=== PATIENT | male | born 1965 | race Caucasian/White ===

== ENCOUNTER 2018-09-30 10:53 | Inpatient (IN) | payer BC ==
[2018-09-30 12:09] VITALS: BMI 20.9
--- NOTE | 2018-09-30 13:00 | HP ---
CIWA Score Nausea/Vomitin Muscle Tremors: 2 Anxiety: 2 Agitation: 2 Paroxysmal Sweats: 1-Minimal Palms Moist Orientation: 0-Oriented Tacttile Disturbances: 1-Very Mild Itch/Numbness Auditory Disturbances: 1-Very Mild Visual Disturbances: 0-None Headache: 2-Mild CIWA-Ar Total Score: 13 - Admission Criteria OASAS Guidelines: Admission for Medically Managed Detox: Requires at least one of the followin. CIWA greater than 12 2. Seizures within the past 24 hours 3. Delirium tremens within the past 24 hours 4. Hallucinations within the past 24 hours 5. Acute intervention needed for co occurring medical disorder 6. Acute intervention needed for co occurring psychiatric disorder 7. Severe withdrawal that cannot be handled at a lower level of care (continued vomiting, continued diarrhea, abnormal vital signs) requiring intravenous medication and/or fluids 8. Admission ROS [facility] - HPI Chief Complaint: i need help to stop drinking alcohol Allergies/Adverse Reactions: Allergies Allergy/AdvReac Type Severity Reaction Status Date / Time No Known Allergies Allergy Verified 09/30/18 14:22 History of Present Illness: this 53 years old male with alcohol dependence,seeking detox,withdrawal symptom, last detox 01/14/16 to 01/18/16 [facility],rehab 01/18/16 to 02/04/16 had episode of syncope on 09/24/18 to 09/25/18 admitted at [facility] to r/o cva,syncope,r/o seizure left the hospital on 09/28/18 daily drinking hypercholesterolemia neuropathy longest sobriety 25 years nicotine 10 cigarette/day,do not want any nicotine replacement depression,insomnia Exam Limitations: No Limitations - Ebola screening Have you traveled outside of the country in the last 21 days: No Have you had contact with anyone from an Ebola affected area: No Have you been sick,other than usual withdrawal symptoms: No - Review of Systems Constitutional: Loss of Appetite, Malaise, Night Sweats, Changes in sleep, Unintentional Wgt. Loss EENT: reports: Nose Congestion Respiratory: reports: No Symptoms reported Cardiac: reports: Palpitations GI: reports: Nausea, Poor Appetite, Indigestion : reports: No Symptoms Reported Musculoskeletal: reports: Back Pain, Muscle Pain Integumentary: reports: Dryness Neuro: reports: Tremors Endocrine: reports: No Symptoms Reported Hematology: reports: No Symptoms Reported Psychiatric: reports: No Sypmtoms Reported, Judgement Intact, Mood/Affect Appropiate, Orientated x3, Depressed (insomnia) Other Systems: Reviewed and Negative Patient History - Patient Medical History Hx Anemia: No Hx Asthma: Yes (asthmatic bronhitis on albuterol inhaler) Hx Chronic Obstructive Pulmonary Disease (COPD): No Hx Cancer: No Hx Cardiac Disorders: No Hx Congestive Heart Failure: No Hx Hypertension: No Hx Hypercholesterolemia: No Hx Pacemaker: No HX Cerebrovascular Accident: No Hx Seizures: No Hx Diabetes: No Hx Gastrointestinal Disorders: Yes (GERD) Hx Liver Disease: No Hx Genitourinary Disorders: No Hx Sexually Transmitted Disorders: No Hx Renal Disease (ESRD): No Hx Thyroid Disease: No Hx Human Immunodeficiency Virus (HIV): No (last 2018 negative) Hx Hepatitis C: No Hx Depression: Yes (insomnia) Hx Suicide Attempt: No Hx Bipolar Disorder: No Hx Schizophrenia: No Other Medical History: no suicidal,no homicidal,neuropathy,syncope alcohol related - Patient Surgical History Past Surgical History: Yes Hx Neurologic Surgery: No Hx Cataract Extraction: No Hx Cardiac Surgery: No Hx Lung Surgery: No Hx Breast Surgery: No Hx Breast Biopsy: No Hx Abdominal Surgery: No Hx Appendectomy: No Hx Cholecystectomy: No Hx Genitourinary Surgery: No Hx Orthopedic Surgery: Yes (left hand 2013) Other Surgical History: ulnar nerve transposition left 2013 at [facility] left Anesthesia Reaction: No - PPD History Previous Implant?: Yes Documented Results: Negative w/o proof Implanted On Prior R Admission?: Yes Date: 01/16/16 Results: 0 mm PPD to be Administered?: Yes - Smoking Cessation Smoking history: Current every day smoker Have you smoked in the past 12 months: Yes Aproximately how many cigarettes per day: 10 Hx Chewing Tobacco Use: No Initiated information on smoking cessation: Yes 'Breaking Loose' booklet given: 09/30/18 - Substance & Tx. History Hx Alcohol Use: Yes Substance Use Type: Alcohol Hx Substance Use Treatment: Yes ([facility] 01/14/16 to 01/18/16,01/18/16 to 02/04/16 rehab) - Substances Abused Alcohol Route: Oral Frequency: Daily Amount used: 1 pint of vodka/6 packs of 24 ozs of beer Age of first use: 14 Date of Last Use: 09/30/18 Family Disease History - Family Disease History Family Disease History: Heart Disease: Father, [place]: Father, Mother Admission Physical Exam [facility] - Vital Signs Vital Signs: Vital Signs - 24 hr 09/30/18 12:06 Temperature 97.5 F L Pulse Rate 105 H Respiratory 20 Rate Blood Pressure 92/63 - Physical General Appearance: Yes: Moderate Distress, Tremorous, Irritable, Sweating, Anxious HEENTM: Yes: Normal ENT Inspection, MARKO, Pharynx Normal Respiratory: Yes: Within Normal Limits, Lungs Clear, Normal Breath Sounds Neck: Yes: Within Normal Limits, Supple, Trachea in good position Breast: Yes: Within Normal Limits Cardiology: Yes: Tachycardia Abdominal: Yes: Within Normal Limits, Normal Bowel Sounds, Non Tender, Flat, Soft Genitourinary: Yes: Within Normal Limits Back: Yes: Muscle Spasm Musculoskeletal: Yes: full range of Motion, Back pain, Muscle Pain Extremities: Yes: Tremors Neurological: Yes: state game protector II-XII NML intact, Alert, Motor Strength 5/5, Other ( neuropathy) Integumentary: Yes: Dry Lymphatic: Yes: Within Normal Limits - Diagnostic (1) Alcohol dependence with withdrawal Current Visit: No Status: Acute Qualifiers: Complication of substance-induced condition: uncomplicated Qualified Code(s ): F10.230 - Alcohol dependence with withdrawal, uncomplicated (2) GERD (gastroesophageal reflux disease) Current Visit: No Status: Chronic Qualifiers: Esophagitis presence: without esophagitis Qualified Code(s): K21.9 - Gastro -esophageal reflux disease without esophagitis (3) Neuropathic pain of hand Current Visit: No Status: Chronic Qualifiers: Laterality: left Qualified Code(s): M79.2 - Neuralgia and neuritis, unspecified (4) Nicotine dependence Current Visit: No Status: Chronic Qualifiers: Nicotine product type: cigarettes Substance use status: uncomplicated Qualified Code(s): F17.210 - Nicotine dependence, cigarettes, uncomplicated (5) Weight loss, unintentional Current Visit: No Status: Suspected (6) Alcohol dependence with uncomplicated intoxication Current Visit: Yes Status: Acute (7) Hypercholesterolemia Current Visit: Yes Status: Acute (8) Syncope Current Visit: Yes Status: Acute (9) Ulnar nerve damage Current Visit: Yes Status: Acute Cleared for Admission [facility] - Detox or Rehab [facility] Level of Care: Medically Managed Detox Regimen/Protocol: Librium [facility] Breath Alcohol Content Breath Alcohol Content: 0.138 Urine Drug Screen - Results Drug Screen Negative: No Urine Drug Screen Results: BZO-Benzodiazepines Inpatient Rehab Admission - Rehab Decision to Admit Inpatient rehab admission?: No
[2018-09-30] MEDS ORDERED: chlordiazePOXIDE HCL 25 MG CAPSULE PO PRN (13:16)
[2018-09-30] MEDS ORDERED: ACETAMINOPHEN 325 MG TABLET (FP) PO PRN ×2 (13:16)
[2018-09-30] MEDS ORDERED: MAG HYDROX/AL HYDROX/SIMETH 30 ML UNIT-DOSE CUP PO PRN (13:16)
[2018-09-30] MEDS ORDERED: MELATONIN 5 MG TABLETS PO PRN (13:16)
[2018-09-30] MEDS ORDERED: BISMUTH SUBSALICYLATE 262 MG/15 ML BTL PO PRN (13:16)
[2018-09-30] MEDS ORDERED: MENTHOL/PHENOL 1 EACH UD MM PRN (13:16)
[2018-09-30] MEDS ORDERED: MAGNESIUM CITRATE 300 ML BOTTLE PO PRN (13:16)
[2018-09-30] MEDS ORDERED: MAGNESIUM HYDROX 2400MG/30ML ORAL SUSPENSION 30 ML CUP PO PRN (13:16)
[2018-09-30] MEDS: chlordiazePOXIDE HCL 25 MG CAPSULE PO SCH ×2 (17:23→22:28)
[2018-09-30] MEDS: hydrOXYzine PAMOATE 25 MG CAPSULE (FP) PO PRN ×2 (17:23→22:28)
[2018-09-30] MEDS: RANITIDINE HCL 150 MG TABLET (FP) PO SCH (22:28)
[2018-09-30] MEDS: GABAPENTIN 400 MG CAPSULE (FP) PO SCH (22:28)
[2018-09-30] MEDS: THIAMINE HCL 100 MG TABLET (FP) PO SCH (22:28)
[2018-09-30 22:35] LABS: URINE APPEARANCE CLEAR; URINE BILIRUBIN NEGATIVE (NEGATIVE); URINE COLOR YELLOW; URINE GLUCOSE (UA) NEGATIVE (NEGATIVE); URINE KETONE NEGATIVE (NEGATIVE); URINE LEUK ESTERASE NEGATIVE (NEGATIVE); URINE NITRITE NEGATIVE (NEGATIVE); URINE PROTEIN NEGATIVE (NEGATIVE); URINE UROBILINOGEN 0.2 mg/dL (0.2-1.0)
[2018-10-01] MEDS: chlordiazePOXIDE HCL 25 MG CAPSULE PO SCH ×4 (06:04→22:05)
[2018-10-01] MEDS: GABAPENTIN 300 MG CAPSULE (FP) PO SCH ×3 (06:35→22:06)
[2018-10-01] MEDS: GABAPENTIN 400 MG CAPSULE (FP) PO SCH (07:20)
[2018-10-01] MEDS: hydrOXYzine PAMOATE 25 MG CAPSULE (FP) PO PRN ×2 (08:43→22:06)
[2018-10-01] MEDS: RANITIDINE HCL 150 MG TABLET (FP) PO SCH ×2 (10:19→22:05)
[2018-10-01] MEDS: PRENATAL VITAMINS W/ FOLIC ACID TABLET (FP) PO SCH (10:19)
[2018-10-01] MEDS: FLUoxetine HCL 10 MG TABLET PO SCH (10:20)
[2018-10-01 10:50] LABS: HEMATOCRIT 45.3 % (35.4-49); HEMOGLOBIN 14.7 GM/dL (11.7-16.9); MCH 33.8 pg (25.7-33.7); MCHC 32.5 g/dl (32.0-35.9); MEAN CELL VOLUME 103.9 fl (80-96); MEAN PLT VOLUME 8.9 fl (7.5-11.1); PLATELET COUNT 270 K/MM3 (134-434); RBC 4.36 M/mm3 (4.00-5.60); RDW 13.7 % (11.9-15.9); WHITE BLOOD COUNT 6.6 K/mm3 (4.0-10.0)
[2018-10-01 11:15] LABS: ALBUMIN 3.9 g/dl (3.4-5.0); ALK PHOS 62 U/L (45-117); ANION GAP 8 MMOL/L (8-16); BILIRUBIN,TOTAL 0.2 mg/dL (0.2-1); BLOOD UREA NITROGEN 10 mg/dL (7-18); CALCIUM 8.6 mg/dL (8.5-10.1); CHLORIDE 109 mmol/L (98-107); CO2 27 mmol/L (21-32); CREATININE 0.8 mg/dL (0.55-1.3); GLUCOSE,RANDOM 91 mg/dL (74-106); POTASSIUM 3.9 mmol/L (3.5-5.1); SGOT/AST 17 U/L (15-37); SGPT/ALT 22 U/L (13-61); SODIUM 144 mmol/L (136-145); TOT PROT 7.1 g/dl (6.4-8.2)
--- NOTE | 2018-10-01 13:37 | PN ---
S CIWA - CIWA Score Nausea/Vomitin Muscle Tremors: 3 Anxiety: 3 Agitation: 2 Paroxysmal Sweats: 2 Orientation: 0-Oriented Tacttile Disturbances: 2-Mild Itch/Numbness/Burn Auditory Disturbances: 0-None Visual Disturbances: 0-None Headache: 1-Very Mild CIWA-Ar Total Score: 15 S Progress Note (SOAP) Subjective: Left leg pain/ neuropathic pain,anxiety, shakes and sweats Objective: 10/01/18 13:37 Vital Signs - 8 hr 10/01/18 10/01/18 08:28 09:42 Temperature 97.7 F 96.8 F L Pulse Rate 59 L 70 Respiratory 18 18 Rate Blood Pressure 98/62 111/56 L Laboratory Last Values WBC 6.6 K/mm3 (4.0-10.0) 10/01/18 05:35 RBC 4.36 M/mm3 (4.00-5.60) 10/01/18 05:35 Hgb 14.7 GM/dL (11.7-16.9) 10/01/18 05:35 Hct 45.3 % (35.4-49) 10/01/18 05:35 MCV 103.9 fl (80-96) H 10/01/18 05:35 MCH 33.8 pg (25.7-33.7) H 10/01/18 05:35 MCHC 32.5 g/dl (32.0-35.9) 10/01/18 05:35 RDW 13.7 % (11.9-15.9) 10/01/18 05:35 Plt Count 270 K/MM3 (134-434) 10/01/18 05:35 MPV 8.9 fl (7.5-11.1) 10/01/18 05:35 Sodium 144 mmol/L (136-145) 10/01/18 05:35 Potassium 3.9 mmol/L (3.5-5.1) 10/01/18 05:35 Chloride 109 mmol/L (98-107) H 10/01/18 05:35 Carbon Dioxide 27 mmol/L (21-32) 10/01/18 05:35 Anion Gap 8 MMOL/L (8-16) 10/01/18 05:35 BUN 10 mg/dL (7-18) 10/01/18 05:35 Creatinine 0.8 mg/dL (0.55-1.3) 10/01/18 05:35 Creat Clearance w eGFR 100.36 (>60) 10/01/18 05:35 Random Glucose 91 mg/dL (74-106) 10/01/18 05:35 Calcium 8.6 mg/dL (8.5-10.1) 10/01/18 05:35 Total Bilirubin 0.2 mg/dL (0.2-1) 10/01/18 05:35 AST 17 U/L (15-37) 10/01/18 05:35 ALT 22 U/L (13-61) 10/01/18 05:35 Alkaline Phosphatase 62 U/L (45-117) 10/01/18 05:35 Total Protein 7.1 g/dl (6.4-8.2) 10/01/18 05:35 Albumin 3.9 g/dl (3.4-5.0) 10/01/18 05:35 Urine Color Yellow 09/30/18 16:21 Urine Appearance Clear 09/30/18 16:21 Urine pH 5.0 (5.0-8.0) 09/30/18 16:21 Ur Specific [place] 1.005 (1.010-1.035) L 09/30/18 16:21 Urine Protein Negative (NEGATIVE) 09/30/18 16:21 Urine Glucose (UA) Negative (NEGATIVE) 09/30/18 16:21 Urine Ketones Negative (NEGATIVE) 09/30/18 16:21 Urine Blood Negative (NEGATIVE) 09/30/18 16:21 Urine Nitrite Negative (NEGATIVE) 09/30/18 16:21 Urine Bilirubin Negative (NEGATIVE) 09/30/18 16:21 Urine Urobilinogen 0.2 mg/dL (0.2-1.0) 09/30/18 16:21 Ur Leukocyte Esterase Negative (NEGATIVE) 09/30/18 16:21 RPR Titer Nonreactive (NONREACTIVE) 10/01/18 05:35 HIV 1&2 Antibody Screen Negative 10/01/18 05:35 HIV P24 Antigen Negative 10/01/18 05:35 Labs noted Assessment: 10/01/18 13:37 Withdrawal sx Plan: Continue detox
[2018-10-01] MEDS: IBUPROFEN 400 MG TABLET (FP) PO PRN (17:49)
[2018-10-01] MEDS: THIAMINE HCL 100 MG TABLET (FP) PO SCH (22:05)
[2018-10-01] MEDS: METHOCARBAMOL 500 MG TABLET PO PRN (22:06)
[2018-10-02] MEDS: chlordiazePOXIDE HCL 25 MG CAPSULE PO SCH ×2 (05:21→10:10)
[2018-10-02] MEDS: GABAPENTIN 300 MG CAPSULE (FP) PO SCH ×3 (05:22→22:23)
[2018-10-02] MEDS: PRENATAL VITAMINS W/ FOLIC ACID TABLET (FP) PO SCH (10:10)
[2018-10-02] MEDS: RANITIDINE HCL 150 MG TABLET (FP) PO SCH ×2 (10:10→22:23)
[2018-10-02] MEDS: FLUoxetine HCL 10 MG TABLET PO SCH (10:10)
[2018-10-02] MEDS ORDERED: HYDROCORTISONE 1% TOPICAL OINT 30 GM TUBE TP ONE (12:21)
--- NOTE | 2018-10-02 12:23 | PN ---
[facility] CIWA - CIWA Score Nausea/Vomitin-No Nausea/No Vomiting Muscle Tremors: 3 Anxiety: 3 Agitation: 3 Paroxysmal Sweats: 2 Orientation: 0-Oriented Tacttile Disturbances: 0-None Auditory Disturbances: 0-None Visual Disturbances: 0-None Headache: 0-None Present CIWA-Ar Total Score: 11 S Progress Note (SOAP) Subjective: shakes sweats rash on face only interrupted sleep Objective: 10/02/18 12:33 Vital Signs Temperature 97.9 F 10/02/18 09:58 Pulse Rate 85 10/02/18 09:58 Respiratory Rate 18 10/02/18 09:58 Blood Pressure 111/70 10/02/18 09:58 O2 Sat by Pulse Oximetry (%) Laboratory Tests 09/30/18 10/01/18 10/01/18 16:21 05:35 05:35 WBC 6.6 RBC 4.36 Hgb 14.7 Hct 45.3 MCV 103.9 H MCH 33.8 H MCHC 32.5 RDW 13.7 Plt Count 270 MPV 8.9 Sodium Potassium Chloride Carbon Dioxide Anion Gap BUN Creatinine Creat Clearance w eGFR Random Glucose Calcium Total Bilirubin AST ALT Alkaline Phosphatase Total Protein Albumin Urine Color Yellow Urine Appearance Clear Urine pH 5.0 Ur Specific [place] 1.005 L Urine Protein Negative Urine Glucose (UA) Negative Urine Ketones Negative Urine Blood Negative Urine Nitrite Negative Urine Bilirubin Negative Urine Urobilinogen 0.2 Ur Leukocyte Esterase Negative RPR Titer HIV 1&2 Antibody Screen Negative HIV P24 Antigen Negative 10/01/18 10/01/18 05:35 05:35 WBC RBC Hgb Hct MCV MCH MCHC RDW Plt Count MPV Sodium 144 Potassium 3.9 Chloride 109 H Carbon Dioxide 27 Anion Gap 8 BUN 10 Creatinine 0.8 Creat Clearance w eGFR 100.36 Random Glucose 91 Calcium 8.6 Total Bilirubin 0.2 AST 17 ALT 22 Alkaline Phosphatase 62 Total Protein 7.1 Albumin 3.9 Urine Color Urine Appearance Urine pH Ur Specific [place] Urine Protein Urine Glucose (UA) Urine Ketones Urine Blood Urine Nitrite Urine Bilirubin Urine Urobilinogen Ur Leukocyte Esterase RPR Titer Nonreactive HIV 1&2 Antibody Screen HIV P24 Antigen aaox3 ambulating no acute distress Assessment: 10/02/18 12:42 withdrawal sx Plan: continue detox hydrocortizone 1% cream
[2018-10-02] MEDS: HYDROCORTISONE 1% TOPICAL OINT 30 GM TUBE TP SCH ×3 (14:31→22:24)
[2018-10-02] MEDS ORDERED: chlordiazePOXIDE HCL 10 MG CAPSULE PO PRN (17:00)
[2018-10-02] MEDS: chlordiazePOXIDE HCL 10 MG CAPSULE PO SCH ×2 (17:48→22:23)
[2018-10-02] MEDS: IBUPROFEN 400 MG TABLET (FP) PO PRN (17:49)
[2018-10-02] MEDS: THIAMINE HCL 100 MG TABLET (FP) PO SCH (22:23)
[2018-10-03] MEDS: IBUPROFEN 400 MG TABLET (FP) PO PRN ×3 (01:49→17:45)
[2018-10-03] MEDS: chlordiazePOXIDE HCL 10 MG CAPSULE PO SCH ×3 (06:06→18:01)
[2018-10-03] MEDS: GABAPENTIN 300 MG CAPSULE (FP) PO SCH ×3 (06:06→22:27)
--- NOTE | 2018-10-03 10:00 | PN ---
[facility] Progress Note (SOAP) Subjective: anxiety interrupted sleep Objective: 10/03/18 10:00 Vital Signs Temperature 96.1 F L 10/03/18 08:51 Pulse Rate 84 10/03/18 08:51 Respiratory Rate 18 10/03/18 08:51 Blood Pressure 120/79 10/03/18 08:51 O2 Sat by Pulse Oximetry (%) aaox3 ambulating no acute distress Assessment: 10/03/18 10:00 withdrawal sx Plan: continue detox increase fluids d/c in am
[2018-10-03] MEDS: RANITIDINE HCL 150 MG TABLET (FP) PO SCH ×2 (10:10→22:27)
[2018-10-03] MEDS: HYDROCORTISONE 1% TOPICAL OINT 30 GM TUBE TP SCH ×4 (10:10→22:27)
[2018-10-03] MEDS: PRENATAL VITAMINS W/ FOLIC ACID TABLET (FP) PO SCH (10:10)
[2018-10-03] MEDS: FLUoxetine HCL 10 MG TABLET PO SCH (10:11)
[2018-10-03] MEDS: THIAMINE HCL 100 MG TABLET (FP) PO SCH (22:27)
[2018-10-03] MEDS: METHOCARBAMOL 500 MG TABLET PO PRN (22:29)
[2018-10-04] MEDS: GABAPENTIN 300 MG CAPSULE (FP) PO SCH (05:51)
[2018-10-04] MEDS: chlordiazePOXIDE HCL 10 MG CAPSULE PO SCH (05:51)
[2018-10-04] MEDS: IBUPROFEN 400 MG TABLET (FP) PO PRN (05:52)
--- NOTE | 2018-10-04 08:54 | DS ---
[facility] Detox Discharge Summary Admission Date: 09/30/18 Discharge Date: 10/04/18 - History Present History: Alcohol Dependence - Physical Exam Results Vital Signs: Vital Signs Temperature 97.5 F L 10/04/18 06:00 Pulse Rate 77 10/04/18 06:00 Respiratory Rate 18 10/04/18 06:00 Blood Pressure 101/65 10/04/18 06:00 O2 Sat by Pulse Oximetry (%) - Treatment Hospital Course: Detox Protocol Followed, Detoxed Safely, Responded well, Discharged Condition Good, Rehab Referral Accepted - Medication Discharge Medications: Ambulatory Orders Fluoxetine HCl [Prozac -] 10 mg PO DAILY #30 tablet 01/16/16 Ranitidine [Zantac -] 150 mg PO BID #60 tablet 02/04/16 Aspirin 81 mg PO DAILY 09/30/18 Atorvastatin Ca [Lipitor] 40 mg PO HS 09/30/18 Gabapentin [Neurontin -] 300 mg PO TID 09/30/18 Hydrocortisone 1% Cream [Hytone 1% Cream -] 1 applic TP QID 10/04/18 - Diagnosis (1) Rash of face Current Visit: Yes Status: Acute (2) Alcohol dependence with uncomplicated intoxication Current Visit: Yes Status: Chronic (3) Hypercholesterolemia Current Visit: Yes Status: Acute (4) Ulnar nerve damage Current Visit: Yes Status: Chronic Qualifiers: Encounter type: sequela Laterality: unspecified laterality Qualified Code (s): S54.00XS - Injury of ulnar nerve at forearm level, unspecified arm, sequela (5) Alcohol dependence with withdrawal Current Visit: Yes Status: Chronic Qualifiers: Complication of substance-induced condition: uncomplicated Qualified Code(s ): F10.230 - Alcohol dependence with withdrawal, uncomplicated (6) Drug-induced mood disorder Current Visit: No Status: Acute (7) GERD (gastroesophageal reflux disease) Current Visit: Yes Status: Chronic Qualifiers: Esophagitis presence: without esophagitis Qualified Code(s): K21.9 - Gastro -esophageal reflux disease without esophagitis (8) Neuropathic pain of hand Current Visit: Yes Status: Chronic Qualifiers: Laterality: left Qualified Code(s): M79.2 - Neuralgia and neuritis, unspecified (9) Nicotine dependence Current Visit: Yes Status: Chronic Qualifiers: Nicotine product type: cigarettes Substance use status: uncomplicated Qualified Code(s): F17.210 - Nicotine dependence, cigarettes, uncomplicated (10) Weight loss, unintentional Current Visit: No Status: Suspected - AMA Did Patient Leave Against Medical Advice: No (referred to [facility] inpatient rehab)
[2018-10-04 09:38] VITALS: BP 102/71; PULSE 90; TEMP 97.9
[2018-10-04] MEDS: RANITIDINE HCL 150 MG TABLET (FP) PO SCH (10:09)
[2018-10-04] MEDS: PRENATAL VITAMINS W/ FOLIC ACID TABLET (FP) PO SCH (10:09)
[2018-10-04] MEDS: FLUoxetine HCL 10 MG TABLET PO SCH (10:09)
[2018-10-04] MEDS: HYDROCORTISONE 1% TOPICAL OINT 30 GM TUBE TP SCH (10:10)
== END 2018-10-04 12:29 | disposition other institution (70) | DRG 775 ==
LOC: YASAS 10:53 → Y6N 13:13
PROVIDERS: ADMIT Surgery; ATTEND Surgery
PROC: HZ2ZZZZ Detoxification Services for Substance Abuse Treatment (ICD-10-PCS; principal; 2018-09-30)
DX: F10.230 Alcohol dependence with withdrawal, uncomplicated (principal); F17.210 Nicotine dependence, cigarettes, uncomplicated; F19.24 Other psychoactive substance dependence with psychoactive substance-induced mood disorder; F41.9 Anxiety disorder, unspecified; G62.9 Polyneuropathy, unspecified; R55 Syncope and collapse; E78.00 Pure hypercholesterolemia, unspecified; M79.2 Neuralgia and neuritis, unspecified; K21.9 Gastro-esophageal reflux disease without esophagitis; R21 Rash and other nonspecific skin eruption; M79.605 Pain in left leg; R63.4 Abnormal weight loss; Z68.21 Body mass index [BMI] 21.0-21.9, adult
CPT/HCPCS: 36415; 80053; 81003; 85027; 86593; 87389